=== PATIENT | male | born 1945 | race Caucasian/White ===

== ENCOUNTER 2019-11-28 10:44 | Emergency (ER) | payer MEDICARE ==
--- NOTE | 2019-11-28 11:13 | ED ---
Syncope/Near Syncope - HPI Summary HPI Summary: The patient is a 74-year-old male presenting to [facility] for evaluation of episode of confusion syncopal episode last night around 2300. He reports that he felt confused prior to passing out last night, which was witnessed by his with positive loss of consciousness. He is unsure of the length of time where he was unconscious, but he estimates the time to be between 1-2 minutes. He denies any headache, blurred vision, chest pain, shortness of breath, nausea, vomiting, diarrhea, or constipation before the syncope. After the episode, he knew where he was at and did not have any confusion, although he still felt weak. He has never experienced these symptoms or a similar episode before last night. He does not have any complaints now. No recent travel or known sick contacts. He has been self-quarantining at home with his . Past medical history includes arthritis, tongue cancer with tumor removal, depression. Admits to daily alcohol use (1 drink per day). Nonsmoker. No substance use. Medications reviewed. Allergies noted. - History Of Current Complaint Chief Complaint: EDSyncope Time Seen by Provider: 11/28/19 10:55 Hx Obtained From: Patient Onset/Duration: Sudden Onset, Lasting Minutes, Resolved Context: Witnessed Activity At Onset: At Rest Aggravating Factor(s): Nothing Alleviating Factor(s): Nothing Associated Signs And Symptoms: Weakness, Other - loss of consciousness with event, confusion prior to syncope but none afterwards; Negative: headache, blurred vision, chest pain, shortness of breath, nausea, vomiting, diarrhea, constipation - Allergies/Home Medications Allergies/Adverse Reactions: Allergies Allergy/AdvReac Type Severity Reaction Status Date / Time No Known Allergies Allergy Verified 11/28/19 10:50 Home Medications: Home Medications Aspirin [Aspirin EC] 81 mg PO DAILY #30 tablet. 11/28/19 [Rx] Atorvastatin* [Lipitor*] 10 mg PO DAILY 11/28/19 [History Confirmed 11/28/19] Potassium Chlor TAB* [Klor Con ER TAB*] 10 meq PO DAILY 11/28/19 [History Confirmed 11/28/19] traZODone TAB* [Desyrel TAB*] 50 mg PO BEDTIME PRN 11/28/19 [History Confirmed 11/28/19] PMH/Surg Hx/FS Hx/Imm Hx Endocrine/Hematology History: Denies: Hx Diabetes Cardiovascular History: Denies: Hx Hypercholesterolemia, Hx Hypertension, Hx Pacemaker/ICD History: Denies: Hx Dialysis, Hx Renal Disease Musculoskeletal History: Reports: Hx Arthritis - TOES, SHOULDERS, WRIST Sensory History: Reports: Hx Contacts or Glasses - GLASSES Denies: Hx Hearing Aid Opthamlomology History: Reports: Hx Contacts or Glasses - GLASSES Psychiatric History: Reports: Hx Depression - Hx OF, OK NOW, NO MEDS Denies: Hx Panic Disorder - Cancer History Cancer Type, Location and Year: tongue ca removed october 2009 with radiation treatment Hx Chemotherapy: No Hx Radiation Therapy: Yes - Surgical History Surgical History: Yes Surgery Procedure, Year, and Place: 1959 -MARK HERNIA. 1988 -Rt ACHILLES TENDON. 1957 - DEVIATED SEPTUM. 10/2013 - BASE OF TONGUE - REMOVED TUMOR Hx Anesthesia Reactions: No Infectious Disease History: No Infectious Disease History: Denies: Traveled Outside the [place] in Last 30 Days - Family History Known Family History: Negative: Respiratory Disease - Social History Alcohol Use: Daily Alcohol Amount: 1 DRINK/DAY Substance Use Type: Reports: None Hx Tobacco Use: No Smoking Status (MU): Never Smoked Tobacco Type: Cigarettes Amount Used/How Often: 1/2 PPD 1 YEAR Have You Smoked in the Last Year: No Review of Systems Negative: Blurred Vision Negative: Palpitations, Chest Pain Negative: Shortness Of Breath Negative: Vomiting, Diarrhea, Nausea, Other - constipation Neurological/Mental Status: Other - confusion prior to syncope but none afterwards Positive: Weakness, Syncope - with loss of consciousness. Negative: Headache All Other Systems Reviewed And Are Negative: Yes Physical Exam - Summary Physical Exam Summary: VITAL SIGNS: Reviewed. GENERAL: Patient is a well-developed and nourished male who is lying comfortable in the stretcher. Patient is not in any acute respiratory distress. HEAD AND FACE: No signs of trauma. No ecchymosis, hematomas or skull depressions. No sinus tenderness. EYES: PERRLA, EOMI x 2, No injected conjunctiva, no nystagmus. No photophobia. EARS: Hearing grossly intact. Ear canals and tympanic membranes are within normal limits. MOUTH: Oropharynx within normal limits. NECK: Supple, trachea is midline, no adenopathy, no JVD, no carotid bruit, no c- spine tenderness, neck with full ROM. No meningeal signs, no Kernig's or brudzinskis signs. CHEST: Symmetric, no tenderness at palpation. LUNGS: Clear to auscultation bilaterally. No wheezing or crackles. CVS: Regular rate and rhythm, S1 and S2 present, no murmurs or gallops appreciated. ABDOMEN: Soft, non-tender. No signs of distention. No rebound, no guarding, and no masses palpated. Bowel sounds are normal. EXTREMITIES: FROM in all major joints, no edema, no cyanosis or clubbing. NEURO: Alert and oriented x 3. No acute neurological deficits. Speech is normal and follows commands. SKIN: Dry and warm. GCS: 15 Triage Information Reviewed: Yes Vital Signs On Initial Exam: Initial Vitals Temp Pulse Resp BP Pulse Ox 99.2 F 107 19 181/77 98 11/28/19 10:46 11/28/19 10:46 11/28/19 10:46 11/28/19 10:46 11/28/19 10:46 Vital Signs Reviewed: Yes - James Coma Scale Best Eye Response: 4 - Spontaneous Best Motor Response: 6 - Obeys Commands Best Verbal Response: 5 - Oriented Coma Scale Total: 15 Procedures - Sedation Patient Received Moderate/Deep Sedation with Procedure: No Diagnostics - Vital Signs Vital Signs Temp Pulse Resp BP Pulse Ox 11/28/19 10:46 99.2 F 107 19 181/77 98 - Laboratory Result Diagrams: 11/28/19 11:40 11/28/19 11:40 Lab Statement: Any lab studies that have been ordered have been reviewed, and results considered in the medical decision making process. - Radiology Chest X-Ray Radiology Interpretation Completed By: Radiologist Summary of Radiographic Findings: Impression: No acute cardiopulmonary process by radiograph. Dr. Rodriguez has reviewed this report. - CT Brain CT CT Interpretation Completed By: Radiologist Summary of CT Findings: Impression: 1. No traumatic injury or acute intracranial process evident. 2. Suggestion of a potential tiny chronic 0.3 cm lacunar infarct at the RIGHT basal ganglia adjacent to the head of the caudate. Dr. Rodriguez has reviewed this report. - EKG 1113 Cardiac Rate: NL - 91 BPM EKG Rhythm: Sinus Rhythm Summary of EKG Findings: EKG at 1113 reveals normal sinus rhythm at [address] elev[address]. [address] Rodriguez has reviewed and interpreted this EKG. Re-Evaluation - Re-Evaluation First Eval Re-Evaluation Time: 13:30 Comment: Results and admission plan discussed with patient. Course/Dx Assessment/Plan: The patient is a 74-year-old male presenting to [facility] for evaluation of episode of confusion syncopal episode last night around 2300. He reports that he felt confused prior to passing out last night, which was witnessed by his with positive loss of consciousness. He is unsure of the length of time where he was unconscious, but he estimates the time to be between 1-2 minutes. He denies any headache, blurred vision, chest pain, shortness of breath, nausea, vomiting, diarrhea, or constipation before the syncope. After the episode, he knew where he was at and did not have any confusion, although he still felt weak. He has never experienced these symptoms or a similar episode before last night. He does not have any complaints now. No recent travel or known sick contacts. He has been self-quarantining at home with his . Past medical history includes arthritis, tongue cancer with tumor removal, depression. Admits to daily alcohol use (1 drink per day). Nonsmoker. No substance use. Medications reviewed. Allergies noted. In the ED course the patient was placed in a monitoring coordinator, IV access was obtained, IV fluids started. Past medical records reviewed. Past medical history significant for dyslipidemia, osteoarthritis, rectal dysfunction, hemorrhoids, rosacea, hematuria, sciatica, carpal tunnel syndrome, anxiety, actinic keratosis, hypokalemia, and GERD. Blood test w/o a significant abnormality except for hematocrit 41, absolute lymphocytes 0.6, glucose 129, magnesium 1.8. Urinalysis is negative for UTI. Head CT impression: 1. No traumatic injury or acute intracranial process evident. 2. Suggestion of a potential tiny chronic 0.3 cm lacunar infarct at the right basal ganglia adjacent to the head of the caudate. Discussed the case with Dr. Stearns from neurology, and he agrees that this is chronic lacunar infarct and is likely not the cause of his syncope episode. I discussed my physical exam and test results with Dr. Contreras from the hospitalist services, and she agrees to admit the patient to his services. The patient is hemodynamically stable alert and oriented x 3. ADDENDUM: Patient was assessed by Fatou Teresa from the hospitalist services. She will dishcarge the patient. - Diagnoses Provider Diagnoses: Syncope - Physician Notifications Discussed Care of Patient With: Evangelista Stearns - neurology Time Discussed With Above Provider: 13:10 Instructed by Provider To: Other - I discussed the patients case with Dr. Stearns , who states CT results appear chronic rather than acute but still agrees with admission. Dr. Contreras from the hospitalist services accepts the patient for admission [1325]. Fatou Lozanoney has evaluated the patient and determined he is appropriate for discharge; she will discharge the patient [1510]. - Critical Care Time Critical Care Statement: Critical care time is provided exclusive of any time spent performing procedures. Discharge ED - Sign-Out/Discharge Documenting (check all that apply): Patient Departure - Patient evaluated by hospitalist services and will be discharged. - Discharge Plan Condition: Stable Disposition: HOME Prescriptions: Aspirin [Aspirin EC] 81 mg PO DAILY #30 tablet. Patient Education Materials: Syncope (DC) Referrals: Marty Hobbs MD [Primary Care Provider] - 3 Days Additional Instructions: Please take medication as prescribed. Follow up with your primary care provider in 2-3 days. Return to the emergency department for any new or worsening symptoms. - Billing Disposition and Condition Condition: STABLE Disposition: Home - Attestation Statements Document Initiated by Gail: Yes Documenting Scribe: Bre Silvestre Provider For Whom Gail is Documenting (Include Credential): Pacheco Rodriguez MD Scribe Attestation: Bre Rogers, scribed for Pacheco Rodriguez MD on 11/29/19 at 0704. Scribe Documentation Reviewed: Yes Provider Attestation: The documentation as recorded by the Bre crow accurately reflects the service I personally performed and the decisions made by me, Pacheco Rodriguez MD Status of Scribe Document: Viewed
[2019-11-28 11:52] LABS: ABS Basophils 0.1 10^3/ul (0-0.2); ABS Eosinophils 0.1 10^3/ul (0-0.6); ABS Lymphocytes 0.6 10^3/ul (1.0-4.8); ABS Monocytes 0.5 10^3/ul (0-0.8); ABS Neutrophils 5.5 10^3/ul (1.5-7.7); Hematocrit 41 % (42-52); Hemoglobin 14.2 g/dL (14.0-18.0); Lymphocyte % 9.4 %; Mean Corpuscular HGB Conc 35 g/dL (31-36); Mean Corpuscular Hemoglobin 32 pg (27-31); Mean Corpuscular Volume 93 fL (80-94); Mean Platelet Volume 6.8 fL (7.4-10.4); Platelet Count 216 10^3/uL (150-450); Red Blood Count 4.39 10^6 /uL (4.18-5.48); Red Cell Distribution Width 13 % (10-15); White Blood Count 6.7 10^3/uL (3.5-10.8)
[2019-11-28 12:07] LABS: Activated Partial Thrombo Time 33.2 seconds (26.0-38.0)
[2019-11-28 12:08] LABS: ALT 17 U/L (7-52); AST 15 U/L (13-39); Albumin 3.8 g/dL (3.2-5.2); Albumin/Globulin Ratio 1.5 (1-3); Alkaline Phosphatase 60 U/L (34-104); Anion Gap 3 mmol/L (2-11); BUN/Creatinine Ratio 21.1 (8-20); Blood Urea Nitrogen 19 mg/dL (6-24); CO2 Carbon Dioxide 29 mmol/L (22-32); Chloride 103 mmol/L (101-111); EGFR African American 100.1 (>60); EGFR Non-African American 82.7 (>60); Globulin 2.6 g/dL (2-4); Glucose 129 mg/dL (70-100); Magnesium 1.8 mg/dL (1.9-2.7); Potassium 3.9 mmol/L (3.5-5.0); Sodium 135 mmol/L (135-145); Total Protein 6.4 g/dL (6.4-8.9)
[2019-11-28 12:29] LABS: Urine Appearance Clear; Urine Bilirubin Negative (Negative); Urine Blood Negative (Negative); Urine Color Yellow; Urine Glucose Negative (Negative); Urine Ketones Negative (Negative); Urine Nitrite Negative (Negative); Urine Protein Negative (Negative); Urine Specific Gravity 1.008 (1.010-1.030); Urine Urobilinogen Negative (Negative)
[2019-11-28 12:57] LABS: Alcohol < 10 mg/dL (<10)
[2019-11-28 13:16] LABS: Free T4 1.01 ng/dL (0.61-1.12)
[2019-11-28] MEDS ORDERED: Aspirin 81 mg CHEW TAB* 81 MG TAB.CHEW PO ONE (15:32)
[2019-11-28 16:54] VITALS: BP 136/76
--- NOTE | 2019-11-29 05:36 | CONS ---
[facility] MEDICINE CONSULTATION REPORT: DATE OF CONSULT: 11/28/19 ATTENDING PHYSICIAN: Dr. Pacheco Rodriguez. CONSULTING PHYSICIAN: Dr. Kathryn Contreras (dictated by Fatou Teresa NP). REASON FOR CONSULT: Syncope. HISTORY OF PRESENT ILLNESS: Mr. Hilliard is a 74-year-old male with a past medical history significant for hyperlipidemia, hyperthyroid, salivary gland carcinoma, who presented to the emergency room with a syncopal episode one day prior to his arrival to the emergency room. The patient reports that last night he had taken trazodone 25 mg prior to going to bed. He reports that he was almost ready to go to sleep but he got up to shut off a device, when he got up out of bed he had severe cramps in his legs, fell back to the bed, was able to stand back up and try to walk off, had severe leg cramps. He reports "the pain was so severe, he felt like he was going to have an out of body experience. " The patient reports that he walked over to the door, he leaned against the door, he felt confused, "he reports he was unsure how he was going to get down the stairs due to the pain in his legs." The patient reports that he turned to walk back to his bed and collapsed on the floor losing consciousness for a few seconds. The patient reports that he remembers falling and he remembers hitting the floor but does not remember hitting his head. The patient reports that after the fall, he lied on the ground for several minutes and then got up without any trouble, he was able to walk around. He did report that his left knee did give out once, but he had no dizziness, no change in vision. He had no chest pain, no diaphoresis, no lightheadedness, no urinary incontinence or bowel incontinence, no weakness on one side. The patient reports that this episode lasted several minutes. He, after the episode was able to get up, he walked around. He felt fine. He reports that he took another 50 mg of trazodone and went to bed and had no other symptoms. The patient reports that he woke this morning, he felt in his normal state of health other than he had some pain to the left side of his head where he had hit to his bed frame. He reports that he had concerns of stroke, so he presented to the emergency room for further evaluation of his syncopal episode. While in the emergency room, the patient had routine lab work. He had a CT of the brain, which showed no acute intracranial pathology, and chronic lacunar infarct. Due to the patient's syncopal episode, Hospital Medicine was asked to see and evaluate the patient for admission. PAST MEDICAL HISTORY: Significant for salivary gland cystic carcinoma, hyperlipidemia, hyperthyroid. PAST SURGICAL HISTORY: Salivary gland surgery for carcinoma in 2014, tonsillectomy, deviated septum repair, and Achilles' tendon repair. HOME MEDICATIONS: Include: 1. Potassium 1000 mg p.o. daily. 2. Atorvastatin 10 mg p.o. daily. 3. Methimazole 10 mg p.o. daily. 4. Trazodone 50 mg p.o. daily at bedtime. ALLERGIES: No known drug allergies. FAMILY HISTORY: No reported history of coronary artery disease. Brother with diabetes. Father from pancreatic and liver cancer. SOCIAL HISTORY: The patient denies any tobacco, never smoked. He does report that he drinks 1 to 2 beers daily. No illicit drug use. He lives with his significant other x20 years. Surrogate decision maker in the event he is unable to make his own decision is his significant other. He is a full code. REVIEW OF SYSTEMS: The patient denies any fever, chills, unintended weight loss , chest pain, edema, cough, hemoptysis, shortness of breath. He denies any nausea, vomiting, diarrhea, abdominal pain, hematuria, or dysuria. Denies any weakness on one side. He denies any visual complaints, dizziness, lightheadedness, any visual changes. He denies any chest pain or associated shortness of breath or diaphoresis. Denies any rashes, lesions, open sores, psychosis, or anxiety. PHYSICAL EXAM: General: At this time, Mr. Hilliard is a 74-year-old male. He is alert and oriented, resting on the stretcher in the emergency room. He is in no acute distress. Vital Signs: Blood pressure 136/76, heart rate 87, respirations are 18, O2 saturation 98% on room air, temperature was 98.9. HEENT : Head is atraumatic, normocephalic. He does have some tenderness noted to the left side of his head. Mucous membranes are moist. Pupils are equal and reactive to light. Neck is supple. Lungs are clear to auscultation bilaterally. No wheezes, rales, or rhonchi. Cardiac: S1, S2. Regular rate and rhythm. No murmurs, rubs, or gallops. Abdomen: Soft and nontender. Bowel sounds are present x4. Extremities: He is able to move all 4 extremities. There is no clubbing or cyanosis. Neurologic: He is awake, alert , oriented x3. Speech is clear. Thought process is intact. Cranial nerves II through XII are grossly intact. He has no facial asymmetry. Smile is equal. Tongue is midline. There is no pronator drift. There is no leg drift. Push- pull is intact. Sensation is intact to all 4 extremities. [id number] is intact. He has no nystagmus. Skin is intact. DIAGNOSTIC STUDIES/LAB DATA: WBCs are 6.7, RBCs 4.39, hemoglobin 14.2, hematocrit is 41, platelet count is 216. APTT was 33.2, D-dimer was less than 200. Sodium 135, potassium 3.9, chloride 103, carbon dioxide is 29, anion gap is 3, BUN was 19, creatinine 0.90, glucose is 129, lactic acid 1.3, calcium 9.0 , magnesium 1.8. T. bilirubin 0.40, ASTs were 15, ALTs were 17, alkaline phosphatase was 60. Ammonia was 22. Troponin 0.00. BNP was 34. TSH was 0.00 and free T4 was 1.01. Urine was within normal limits with the exception of specific gravity was 1.008 and alcohol was less than 10. He had an electrocardiogram, which showed sinus rhythm at a rate of 91, no acute ischemic changes. He had a CT of the brain, radiologist's impression: No traumatic injury or acute intracranial process as evident, suggestion of a potentially chronic 0.3 lacunar infarct in the right basal ganglia adjacent to the head of the caudate. He had a chest x-ray, radiologist's impression: No active cardiopulmonary disease. ASSESSMENT AND PLAN: Mr. Hilliard is a 74-year-old male with a past medical history significant for salivary gland carcinoma, hyperthyroid, and hyperlipidemia, who presented to the emergency room after a syncopal episode one day prior to his arrival. Our recommendations are as follows: Syncope. The patient did report that he had a syncopal episode after experiencing severe leg cramps and severe pain in his legs associated with his leg cramps. I suspect that his syncopal episode is related to vasovagal as the patient had no symptoms of an acute arrhythmia, the patient had no dizziness, no chest pain, no diaphoresis, no lightheadedness prior to his syncopal episode. He does report that his syncopal episode lasted only a few seconds, which is not consistent with an arrhythmia. At this time, the patient is stable for discharge home. He should follow up with his primary care provider in the next 4 to 7 days in regards to the possible chronic lacunar infarct, incidental finding shown on CT. I also discussed this case with Dr. Stearns who also recommended starting the patient on aspirin and likely this event was related to vasovagal syncope. Given the patient has no acute deficits, he is stable for discharge home and we will place him on aspirin 81 mg p.o. daily. I have discussed these recommendations with Dr. Rodriguez in the emergency room. He will discharge the patient home. The patient should follow up with his primary care provider in 4 to 5 days. He should return to the emergency room for any chest pain, weakness on one side, difficulty speaking, facial droop, or any other concerning symptoms. The patient verbalized understanding. TIME SPENT: Time spent on this consultation was 45 minutes, greater than half that time was spent at the bedside reviewing events leading thus far to his hospitalization, performing physical exam, and reviewing my plan of care. I have discussed this with my attending, Dr. Kathryn Contreras. I have also discussed this with Dr. Rodriguez in the emergency room, who will facilitate this patient's discharge home. FATOU TERESA NP [id number]/[facility] #: [id number] RICKY
== END 2019-11-28 16:24 | disposition home or self-care (01) ==
LOC: ED 10:44
DX: R55 Syncope and collapse (principal); R41.0 Disorientation, unspecified; F32.9 Major depressive disorder, single episode, unspecified; Z85.810 Personal history of malignant neoplasm of tongue; Z79.82 Long term (current) use of aspirin; Z79.899 Other long term (current) drug therapy
CPT/HCPCS: 36415; 70450; 71045; 80053; 80320; 81003; 82140; 83605; 83735; 83880; 84439; 84443; 84484; 85025; 85379; 85730; 93005; 99284; A9270-GY; G0480